=== PATIENT | male | born 1975 | race Caucasian/White ===

== ENCOUNTER 2023-02-10 12:13 | Outpatient (CLI) | payer OTHER, SELFPAY ==
--- NOTE | 2023-02-10 12:00 | CT_ITS ---
WS: [id number] CT ANGIOGRAM CEREBRAL AND CAROTID ARTERIES HISTORY: F03.90 - Unspecified dementia, unspecified severity. TECHNIQUE: CT angiogram is performed of the carotid and cerebral arteries. During arterial injection imaging is obtained from the skull vertex to the aortic arch in 1.25 mm imaging. Coronal and sagittal reformats are submitted. Additional multi planar reformats of the carotid and cerebral arteries are submitted, MIP imaging also reviewed. NASCET criteria utilized. [facility] at least one of these dose optimization techniques: automated exposure control; mA and/or kV adjust ment per patient size (includes targeted exams where dose is matched to clinical indication); or iter ative reconstruction. CONTRAST: Omnipaque 350; 100 mL IV. DLP: 678.13 mGy.cm COMPARISON: Noncontrast CT head 02/04/2017. Noncontrast CT initially was performed as part of this examination. Unfortunately the quality is subo ptimal. We will attempt to have the patient return for additional noncontrast CT imaging with no cesar tional charge. If patient is unable to return at this time CT can be performed at the time of his off ice visit with Dr. Valdez in March. Carotid Angiogram: Right carotid: Common carotid artery: Arises normally from the innominate artery. No significant plaque or stenosis. Internal carotid artery: Very minimal atherosclerotic plaque. No high-grade stenosis. External carotid artery: Patent. Left carotid: Common carotid artery: Arises normally from the aorta. No significant plaque or stenosis. Internal carotid artery: No plaque or stenosis. External carotid artery: Patent. Right vertebral artery: Unremarkable. Left vertebral artery: Small caliber are patent. Subclavian arteries: No stenosis or significant abnormality. Upper thorax: Mild dependent changes. Motion and breathing artifact. Thyroid gland: Normal. Osseous structures: Unremarkable. CEREBRAL ANGIOGRAM: Intracranial vertebral arteries: Dominant RIGHT vertebral artery. Small caliber LEFT vertebral artery but it is patent. Basilar artery: No significant stenosis or occlusion. No aneurysm. Intracranial Internal carotid arteries: Demonstrates no significant stenosis or plaque. Middle cerebral arteries: Normal. Anterior cerebral arteries and ACOM: Normal. Posterior cerebral arteries and PCOM's: Patent. Persistent circulation on the RIGHT. Posterior communicating arteries are both patent, RIGHT is dominant. Dural venous sinuses are normally enhancing. Mastoid air cells: Normal. Paranasal sinuses: Moderate mucoperiosteal thickening in the maxillary sinuses. Calvarium: Normal. Incidentally noted is a 3.8 mm low-attenuation nodule in the RIGHT tonsillar bed. This was also prese nt on the MRI from 2017 without increase in size. Note: Noncontrast head CT first performed for this examination was nondiagnostic. We will attempt to have the patient return for repeat noncontrast CT head. If he is unable to return prior to his appoin tment with Dr. Valdez in March the CT of the head can be performed at that time. No additional [facility]. CT/CT angio headneck* [id number] IMPRESSION: 1. No significant carotid artery stenosis. 2. No significant [place] of [place] atherosclerosis. No aneurysms.
[2023-02-10] MEDS: iohexol 350 mg/mL 500 mL Btl (per mL) IV (12:46)
== END 2023-02-10 12:14 | disposition home or self-care (01) ==
LOC: RAD 12:14
PROVIDERS: PCP Family Medicine; Visit Provider Specialist
DX: F03.90 Unspecified dementia, unspecified severity, without behavioral disturbance, psychotic disturbance, mood disturbance, and anxiety (principal); G93.40 Encephalopathy, unspecified
CPT/HCPCS: 70496; 70498; Q9967

== ENCOUNTER → 2023-05-26 14:37 | Outpatient (BNVA) | payer OTHER, SELFPAY | PROVIDERS: PCP Family Medicine; Visit Provider Specialist | DX: F03.90 Unspecified dementia, unspecified severity, without behavioral disturbance, psychotic disturbance, mood disturbance, and anxiety (principal); G93.40 Encephalopathy, unspecified; G31.84 Mild cognitive impairment of uncertain or unknown etiology; R29.90 Unspecified symptoms and signs involving the nervous system; F32.3 Major depressive disorder, single episode, severe with psychotic features; F43.10 Post-traumatic stress disorder, unspecified | CPT/HCPCS: 0346U; 36415 ==

== ENCOUNTER → 2023-06-30 13:57 | Outpatient (BNVA) | payer OTHER, SELFPAY | PROVIDERS: PCP Family Medicine; Referring Provider Family Medicine; Visit Provider Orthopaedic Surgery | DX: R29.90 Unspecified symptoms and signs involving the nervous system (principal); R20.0 Anesthesia of skin | CPT/HCPCS: 72040 ==

== ENCOUNTER 2023-07-08 09:03 | Outpatient (CLI) | payer OTHER, SELFPAY ==
--- NOTE | 2023-07-08 09:07 | NM_ITS ---
WS: [id number] NUCLEAR MEDICINE WHOLE BODY BONE SCAN HISTORY: LYTIC LESION OF BONE ON XRAY COMPARISON: CT lumbar spine 06/19/2023. TECHNIQUE: The patient was injected with 27.2 mCi of Technetium 99m HDP and serial whole-body scintig basia have been performed with anterior and posterior images. Additional large [id number] imaging o jenny the skull and pelvis. Mild degenerative changes at the AC joints and glenohumeral joints. Normal symmetric uptake in the pe lvis. No increased or decreased activity in the LEFT pelvis to correspond to the CT finding of increa sed sclerosis. The lytic area does not have increased uptake either. Mild degenerative changes at the knees, LEFT greater than RIGHT. Mild facet joint arthritis at C7-T1. There is normal soft tissue uptake. Normal renal uptake. IMPRESSION: No abnormality on the bone scan to correspond to the sclerotic and lytic changes in the LEFT ilium as described on 06/19/2023.
== END 2023-07-08 09:04 | disposition home or self-care (01) ==
PROVIDERS: PCP Family Medicine; Visit Provider Family Medicine
DX: R93.7 Abnormal findings on diagnostic imaging of other parts of musculoskeletal system (principal)
CPT/HCPCS: 78306; A9561

== ENCOUNTER 2023-07-29 09:07 | Outpatient (CLI) | payer OTHER, SELFPAY ==
--- NOTE | 2023-07-29 09:30 | MR_ITS ---
WS: [id number] MRI CERVICAL SPINE NONCONTRAST HISTORY: c7 fracture COMPARISON: Cervical spine CT 06/19/2023 Technique: Multiplanar, multisequence noncontrast imaging of the cervical spine. Mild increase in the cervical lordosis. C5 retrolisthesis by 2 mm. Mild disc desiccation. Questionabl e minimal increased T2 signal in the C7 LEFT superior articular facet. The fracture line is not evide nt previously described in the C7 facet. Signal within the cervical cord is normal. Visualized posterior fossa is unremarkable. Craniocervical junction, C1 and C2 relationship, odontoid process and soft tissues are normal. C2-C3: Small LEFT foramen osteophyte. No stenosis. C3-C4: Mild osteophytic ridging and disc bulging. Small LEFT foraminal osteophyte. C4-C5: Mild disc bulging and osteophytic ridging. Tiny central disc protrusion. Mild bilateral facet joint arthritis. C5-C6: Mild annular disc bulging with a shallow central disc protrusion. Small bilateral foraminal os teophytes. C6-C7: Normal. C7-T1: Mild osteophytic ridging. No stenosis. Paraspinal soft tissue are normal. IMPRESSION: 1. Questionable very minimal marrow edema in the LEFT C7 superior articular facet. This would corresp ond to the fracture previously described on the CT of 06/19/2023. 2. No high-grade central or foraminal stenosis. 3. Multilevel small bilateral foraminal osteophytes and a few small disc protrusions as above.
== END 2023-07-29 09:08 | disposition home or self-care (01) ==
LOC: RAD 09:07
PROVIDERS: PCP Family Medicine; Visit Provider Orthopaedic Surgery
DX: S12.600A Unspecified displaced fracture of seventh cervical vertebra, initial encounter for closed fracture (principal); X58.XXXA Exposure to other specified factors, initial encounter; M25.78 Osteophyte, vertebrae; M50.222 Other cervical disc displacement at C5-C6 level
CPT/HCPCS: 72141

== ENCOUNTER 2023-08-11 14:30 | Outpatient (CLI) | payer OTHER, SELFPAY | END 2023-08-11 14:31 | disposition home or self-care (01) | LOC: SLEEP 08-12 15:55 | PROVIDERS: PCP Family Medicine; Visit Provider Family Medicine | DX: G47.33 Obstructive sleep apnea (adult) (pediatric) (principal) | CPT/HCPCS: G0399 ==

== ENCOUNTER 2023-09-10 16:26 | Outpatient (CLI) | payer OTHER, SELFPAY ==
--- NOTE | 2023-09-10 16:45 | MR_ITS ---
WS: [id number] MRI HEAD WITHOUT CONTRAST TECHNIQUE: Sagittal T1, T2 axial, T2 axial FLAIR, axial and coronal T1 images, axial susceptibility w eighted imaging, axial diffusion weighted images, and coronal T2 images were obtained. CLINICAL INFORMATION: G31.84 - Mild cognitive impairment of uncertain or unknow... COMPARISON: Outside MRI 04/24/2022 FINDINGS: No evidence of restricted diffusion to suggest acute ischemia. Ventricular system and basal cisterns are patent. A few small foci of T2 hyperintensity in the supratentorial white matter unchanged since 2021. This is nonspecific in a patient this age but can be seen with hypertension, diabetes, and migr phillip headaches. Normal posterior fossa. Normal vascular flow voids at the skull base. No extra-axial fluid collection s. No evidence of mass or mass effect. Mucosal thickening in the ethmoid air cells. Paranasal sinuses and mastoid air cells are otherwise well aerated. No hemosiderin on susceptibly weighted images. Normal optic chiasm and pituitary infundibulum. Tempor al lobes and hippocampal formations are normal. Incidental mild cerebellar tonsillar ectopia. IMPRESSION: 1. No evidence of restricted diffusion to suggest acute ischemia. 2. A few tiny foci of T2 hyperintensity in the supratentorial white matter are unchanged from previo us. This can be seen with hypertension, diabetes, migraine headaches. 3. No significant parenchymal volume loss. 4. No hemosiderin on the susceptibly weighted images. 5. Temporal lobes and hippocampal formations are normal. 6. No other suspicious findings.
== END 2023-09-10 16:27 | disposition home or self-care (01) ==
LOC: RAD 16:26
PROVIDERS: PCP Family Medicine; Visit Provider Specialist
DX: G31.84 Mild cognitive impairment of uncertain or unknown etiology (principal)
CPT/HCPCS: 70551